=== PATIENT | female | born 1990 | race Caucasian/White ===

== ENCOUNTER 2019-11-22 01:29 | Day surgery (SDC) | payer BC, SELFPAY ==
[2019-11-09 09:12] VITALS: BMI 25.4
--- NOTE | 2019-11-21 17:21 | PM.SD ---
Same Day Admit/Disch: HPI History of Present Illness Chief complaint: Right Breast Mass Narrative: Lauren Nj is a 28 year old female who has had a right breast mass in the inferior outer quadrant for probably 10 years. An ultrasound done 10 years ago showed a benign nodule. This has become more tender and sometimes painful. It is not really been increasing in size. She was seen in the office and felt to have a fibroadenoma. She is taken to surgery now for excision. [facility] Past Medical History Medical History Anxiety Depression Surgical History Surgical History Hx of LASIK Hx of tonsillectomy [place] teeth extracted Family History Family History Father Hypertension Mother Depression Unknown Diabetes mellitus Social History Social History Smoking status: Never smoker Alcohol intake: current Same Day Admit/Disch: Med Pre-admit Medications Home Medications Medication Instructions Recorded Confirmed Type etonogestrel 68 mg subdermal 1 implant SUBDERMAL ONCE 10/15/19 11/09/19 History implant fluoxetine 20 mg capsule 20 mg PO DAILY 10/15/19 11/22/19 History hydrocodone-acetaminophen 1 - 2 tablet PO Q6H PRN #7 tablet 11/22/19 Rx ketorolac 10 mg PO Q6H 4 Days #16 tablet 11/22/19 Rx Exam Const: General: comfortable, no acute distress, alert and awake HENMT: Head: normocephalic and atraumatic Mouth: Yes Normal oral and palatal mucosa present Eyes: Conjunctivae: conjunctivae normal Pupils: Equal, round and reactive pupils present EOM: EOMs intact bilaterally Neck: Neck: normal visual inspection, no lymphadenopathy and nontender Chest: Breast/axilla inspection: normal inspection of the breasts and normal inspection of the axillae Breast/axilla palpation: no axillary lymphadenopathy and abnormal palpation of the breast (1.5 cm smooth mobile rubbery mass inferior outer quadrant right breast ) Resp: Effort & Inspection: normal respiratory effort Auscultation: clear to auscultation bilaterally Cardio: Rate: regular rate Rhythm: regular rhythm Heart sounds: no gallops, no murmurs and no rubs GI: Inspection: non-distended GI Palp: Yes Soft to palpation, No Tenderness to palpation present (GI), No Hepatomegaly present and No Splenomegaly present Skin: Lesions: no lesions Rashes: no rashes Neuro: General: no focal motor deficits and CN's II-XI intact bilaterally Cranial nerves: Yes Equal, round and reactive pupils present, Yes Bilaterally intact EOM present, Yes facial symmetry and Yes Midline tongue present Speech: normal speech Motor exam (neuro): 5/5 motor strength present throughout and Motor abnormalities not present Extrem: General: no clubbing, cyanosis or edema and edema Psych: Affect: normal affect Thought process: Normal thought process present Insight: Good insight present (Psych) DS: Summary Time Spent with Patient Time attestation: Total time spent providing and/or coordinating discharge services: DS: Diagnosis Discharge Diagnosis (1) Breast mass, right: Code(s): N63.10 - Unspecified lump in the right breast, unspecified quadrant Status: Chronic Assessment and Plan: I discussed the likely diagnosis of fibroadenoma with the patient. We will go ahead with excisional biopsy under anesthesia as an outpatient. The procedure the risks the benefits have been discussed. The usual recovery has been discussed. All questions were answered. She agrees to go ahead. Discharge Plan Discharge Patient Disposition: Home, Self-Care Discharge Instructions: 1.)Keep wound clean and dry. 2.)No vigorous activity or carrying with affected arm. May use arm to comb hair, eat, write, etc. 3.)Do not apply creams or ointments unless directed to do s
[2019-11-22 10:20] VITALS: BP 113/67; PULSE 72; RESP 20; TEMP 36.3
[2019-11-22] MEDS: LACTATED RINGERS 1,000 ML 30 ML IV CONT ×2 (11:00)
--- NOTE | 2019-11-22 11:15 | P.PNAN_ITS ---
Anes - Initial Pre Proc Eval Procedure: Operation Date: 11/22/19 12:00 Proposed Procedures p Excisional Right Breast Biopsy - Prince Tarango MD Date/Time: 11/22/19 11:15 Surgeon: Prince Tarango MD Pre Op Diagnosis: Right Breast Mass Patient Data Age: 28 Gender: F Height: 1.63 m Weight: 70.8 kg Last Vital Signs Temp 36.3 C L 11/22/19 10:20 Pulse 72 11/22/19 10:20 Resp 20 11/22/19 10:20 BP 113/67 11/22/19 10:20 Allergies Allergy/AdvReac Type Severity Reaction Status Date / Time No Known Allergies Allergy Mild Unverified 11/22/19 10:44 Home Medications Medication Instructions Recorded Confirmed Type etonogestrel 68 mg subdermal 1 implant SUBDERMAL ONCE 10/15/19 11/09/19 History implant fluoxetine 20 mg capsule 20 mg PO DAILY 10/15/19 11/22/19 History Patient hx anesthesia problems: none Family hx anesthesia problems: none PMFSH Past Medical History Medical History (Updated 11/22/19 @ 11:16 by Dexter Cloud MD) Anxiety Depression Surgical History Surgical History Hx of LASIK Hx of tonsillectomy [place] teeth extracted Family History Family History Father Hypertension Mother Depression Unknown Diabetes mellitus Social History Social History Smoking status: Never smoker Alcohol intake: current Anes - Eval Final PreProcedure Day of Procedure 11/22/19 11:15 Patient weight: overweight Heart: regular rate and rhythm Lungs: clear to auscultation and normal air movement Airway: Mallampati scale class II Neurological: alert and oriented Last oral intake: >/= 8 hours ASA classification: II Emergent: no Anesthetic plan: proceed Anesthesia type and monitoring: general GIVS Informed Consent: The patient's anesthetic plan and its attendant risks and benefits were discussed with the patient/family/POA. Questions were solicited and answers provided to the satisfaction of the patient/family/POA.
--- NOTE | 2019-11-22 11:49 | WPDHPUPDATE1 ---
History and Physical Update Update Date/Time: 11/22/19 11:49 History and Physical has been reviewed, including an updated exam of the patient. There are NO changes in the patient's condition. Risks, benefits, and alternatives have been discussed and questions answered. Patient agrees to proceed with procedure.
--- NOTE | 2019-11-22 11:51 | PM.PROC ---
Procedure Note - Detailed Date of procedure: 11/22/19 Pre-op diagnosis: Right Breast Mass Right breast mass Post-op diagnosis: same Procedure performed: Excisional biopsy right breast mass Description of procedure: The patient was taken to surgery and placed in a supine position. The right breast was prepped and draped. The proposed incision was marked on the skin along the edge of the nipple-areolar complex. The nodule was quite close to the edge of the nipple. Local was infiltrated in the skin and subcutaneous. Incision was made and dissection down to the nodule was carried out. The nodule was smooth rubbery and white in color. This was consistent with a fibroadenoma which was the expected diagnosis. The nodule was pulled up into the wound and then excised completely. Bleeding was minimal. Cautery was used for hemostasis. Additional local was infiltrated into the surrounding breast tissue. We again checked for hemostasis and ensured it was good. The wound was then closed in layers with 3 0 Monocryl interrupted suture. Subcuticular interrupted 3 0 Monocryl suture were placed. The skin was closed with running 4 0 Monocryl subcuticular skin suture. The wound was dressed with Exofin surgical adhesive. Sponge and needle counts were correct x2. The patient transferred to outpatient step-down in good condition. Anesthesia: MAC and local (0.5% Marcaine with epinephrine) Surgeon: Prince Tarango MD Game Manager: Tania BEY Estimated blood loss (mL): 5 Drains: No Packing: No Pathology: yes (Right breast nodule) Complications: None Condition: stable Disposition: same day Findings: 2 cm white, rubbery, smooth breast nodule consistent with fibroadenoma.
[2019-11-22] MEDS: ceFAZolin 2 GM/D5W 50 ML 2 GM/50 ML BAG IVPB (12:00)
[2019-11-22] MEDS: BUPIVACAINE/EPINEPHRINE 0.5% 30 ML VIAL INFILTRATE (12:20)
[2019-11-22 12:42] VITALS: BP 84/49; PULSE 68; RESP 10; O2SAT 96
[2019-11-22 13:12] VITALS: BP 94/64; PULSE 62; RESP 14; O2SAT 100
[2019-11-22 13:42] VITALS: BP 97/68; PULSE 63; RESP 14; O2SAT 100
== END 2019-11-22 13:50 | disposition home or self-care (01) ==
PROVIDERS: Visit Provider Surgery
PROC: (CPT 19120; principal; 2019-11-22 12:00)
DX: D24.1 Benign neoplasm of right breast (principal); F41.8 Other specified anxiety disorders
CPT/HCPCS: 19120; 88307; J0690; J2250; J2704; J3010; J7120